=== PATIENT | male | born 1985 | race African-American/Black ===

== ENCOUNTER 2020-07-10 14:00 | Outpatient (CLI) | payer OTHER ==
--- NOTE | 2020-07-10 14:22 | SLEEP CARE CONSULTATION ---
Information from patient questionnaire entered by Yamilex Bledsoe. I have reviewed and concur with the information entered by Yamilex Bledsoe. This document represents the service I personally performed and the decisions made by me, Ivon Lee MD, [facility]. History of Present Illness Service Date and Time: 07/10/2020 1400 Reason for Visit: New patient Chief Complaint: reports: Insomnia, Snoring, Excessive daytime sleepiness, Fatigue Date of Onset: 10+ YEARS Usual bedtime: 2300 usually Time it takes to fall asleep: 20 minutes Snores at night: Yes Observed to quit breathing while asleep: Yes Sleeps alone due to snoring: No Number of times waking at night: 2-3 Reasons for waking at night: reports: Snoring, Other (coughing) Toss, Turn, or Twitch while sleeping: Yes Recalls having dreams: Yes Usually gets out of bed at: 0800 Feels refreshed in the morning: No Morning headache: Yes (sometimes) Sleepy or fatigued during the day: Yes (Everyday) Ever fallen asleep while driving: Yes Takes day naps: Yes Dreams during day naps: No Prior sleep studies: Yes Year and Where: [place] date unknown Additional HPI information: I had the pleasure of seeing Mr. Lu today regarding the possibility of him having a sleep disorder. As you know, he is a 35 year old gentleman who complains of insomnia, loud snore, persistent fatigue, and excessive daytime sl eepiness. He had a sleep study in [place] about 10 years. No treatment was recommended. The patient tells me that he normally goes to bed around 11 pm, and it takes him approximately 20 - 30 minutes to fall asleep. He has been told that he snores loudly and irregularly at night. He has also been observed to stop breathing in his sleep. His can still sleep in the same bed. He can recall waking up on the average of 2 - 3 times during the night. Most of the time he wakes up because of having to use the bathroom and neck pain. He has awakened occasionally because of his own snoring, choking, and having to gasp for air. He has to only sleep on his back. There is a lot of tossing and turning in his sleep. No somniloquy (sleep talking) or somnambulism (sleep walking). Gen jesusy he can recall having dreams. In the morning he usually gets up out of the bed around 8 a.m. not feeling refreshed nor rested. He occasionally has a morning headache. During the day he complains of feeling sleepy and fatigued. His score on [place] Sleepiness Scale is 11 out of 24. He has fallen asleep while driving and has gone out of the asha. He usually takes naps during the day. Upon falling asleep during the day he denies having vivid dreams. He has never had sleep paralysis, experienced cataplexy or symptoms of restless leg syndrome. 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 Patient is and lives in [place]. Have you smoked in the past 12 months: Yes Cigarettes per day (20/pack): 2 Years of smokin Quit date: 04/2020 Smoking Pack Years: 2.0 Alcohol use: Yes Alcohol amount and frequency: 2 drinks, 2x/month Caffeine use: Yes Caffeine amount and frequency: 1 cup/day Family History Family history of sleep disordered breathing: Yes Family Hx Sleep Apnea: Mother: Snoring (uncles), Sibling: Snoring, Other: Sleep apnea - Treated Allergies and Home Medications Drug allergies reviewed: Yes Home medication list reviewed: Yes Review of Systems Cardiovascular: denies: high blood pressure, palpitations, chest pain, irregular heart rate or pulse, leg or foot swelling, have to sleep sitting up, other Respiratory: denies: shortness of breath, wheeze, sputum production, chronic cough, other Gastrointestinal: reports: abdominal pain Urinary: denies: incontinence, frequency, urgency, impotence, other Neurological: reports: headaches Psychiatric: reports: Attention Deficit Hyperactivity, depression, mood disorder (not diagnosed) Ear/Nose/Throat: denies: nasal congestion, sinus problems, nose bleeds, dry mouth/throat, hoarseness, injury to nose, tonsillectomy, wisdom teeth removed, other Endocrine: denies: thyroid disease, history of goiter, sluggishness, too hot or cold, excessive thirst, increased appetite, increased urination, unexplained weakness, other Musculoskeletal: reports: neck pain, back pain Immunologic: denies: sneezing, rash, itching, allergies to food or environment, other Physical Exam Height: 5 ft 7.5 in Weight: 190 lb Body Mass Index: 29.3 BMI Classification: Overweight Impression and Plan IMPRESSION: 1. Obstructive Sleep Apnea-Hypopnea Syndrome, as suggested by history of loud and irregular snoring, observed cessation of breath while asleep, frequent awakenings during the night, unrefreshed sleep, and daytime hypersomnolence. Narrow oropharynx and obesity are common predisposing factors for obstructive sleep apnea-hypopnea syndrome. Pathophysiology of sleep-disordered breathing was discussed. I recommend proceeding to polysomnography to confirm the diagnosis and to assess severity. If he has significant sleep disordered breathing, a manual CPAP titration study will also be performed to find the optimal treatment pressure. I informed the patient of what the sleep studies involve and after some discussion, he agreed to proceed. Plan: 1. Schedule an in-laboratory polysomnography + manual CPAP titration study 2. Avoid long distance driving or when feeling sleepy. 3. Avoid alcohol, sedative and muscle relaxant around bedtime. 4. Attempt to lose weight. 5. Return in 1 to 2 weeks after the study to discuss results and initiate therapy. Visit Type: Telehealth Video Video Type: Doximity Patient Location: Home Location of Provider: Home Patient agrees and consents to this telehealth visit type: Yes Patient agrees to have their insurance billed: Yes Time Spent with Patient (minutes): 15 Provider Statement: I spent 100% of the Telehealth Video Call with the patient with greater than 50% spent counseling the patient and coordination of care.
== END 2020-07-10 14:01 | disposition home or self-care (01) ==
LOC: SC 14:00
PROVIDERS: ATTEND Internal Medicine Pulmonary Disease
DX: R06.83 Snoring (principal); R06.81 Apnea, not elsewhere classified; G47.8 Other sleep disorders; G47.10 Hypersomnia, unspecified; E66.3 Overweight; Z68.29 Body mass index [BMI] 29.0-29.9, adult

== ENCOUNTER 2020-09-16 20:29 | Outpatient (CLI) | payer OTHER | END 2020-09-16 20:30 | disposition home or self-care (01) | LOC: SC 20:29 | PROVIDERS: ATTEND Internal Medicine Pulmonary Disease | DX: R06.83 Snoring (principal); G47.10 Hypersomnia, unspecified; G47.00 Insomnia, unspecified; R53.83 Other fatigue; E66.3 Overweight; Z68.29 Body mass index [BMI] 29.0-29.9, adult | CPT/HCPCS: 95810 ==

== ENCOUNTER 2020-09-26 17:17 | Outpatient (CLI) | payer OTHER ==
--- NOTE | 2020-09-26 17:26 | SLEEP CARE CONSULTATION ---
Information from patient questionnaire entered by Estela Cuellar. I have reviewed and concur with the information entered by Estela Cuellar. This document represents the service I personally performed and the decisions made by , Moon Contreras ARNP. History of Present Illness Service Date and Time: 09/26/2020 1700 Initial [place] Sleepiness Scale score: 11 (in 2020) Current [place] Sleepiness Scale score: 12 Additional HPI information: ARUN WAITE returns via Telehealth visit for follow up and results of the recently performed polysomnography. The patient was informed of the following findings: the patient had no significant sleep disordered breathing with an average AHI of 3.0 and narinder oxygen saturation of 90%. I explained the pathophysiology behind obstructive sleep apnea. Patient does not have sleep apnea and was advised how weight gain could increase the risk of developing sleep apnea in the future. I strongly encouraged the patient to lose weight. Patient has moderate to loud snoring. Snoring can be reduced by weight loss. Weight loss is best achieved with diet consult. Patient instructed to contact PCP for referral. Snoring can also be treated with an oral appliance from a dentist. Advised to check insurance coverage. In addition, an ENT evaluation can be do to see if other treatment is indicated. Patient counseled not drink alcohol less than 4 hours before bedtime as it can increase snoring and apnea. Patient was cautioned about risks of drowsy driving until sleepiness symptoms resolve. Sleep Study - Results Type of Sleep Study: Polysomnography Prior sleep studies: Yes Year and Where: [place] date unknown Polysomnography/Home Sleep Study results: IMPRESSION: The quality of the study is good. The patient had slightly reduced sleep efficiency due to a prolonged awakening in the middle of the night.. The sleep architecture was relatively normal considering the firstnight effect. Respiratory monitoring showed no significant sleep disordered breathing sleep-disordered breathing (AHI = 3.0) or hypoxia (narinder oxygen saturation of 90%). The respiratory events occurred mainly during REM sleep. The patient slept mostly supine (supine AHI = 3.7; non-supine = 0.00). Snore was moderate to loud in intensity. There was no significant periodic leg movement of sleep. Cardiac rhythm was normal sinus rhythm without significant arrhythmia. No abnormal behavior (parasomnia) observed during the night. Allergies and Home Medications Home medication list reviewed: Yes (no changes) Review of Systems Review of systems same as previous: Yes (no changes) Physical Exam Vital signs obtained and entered by: Telehealth visit to limit exposure during Covid pandemic Height: 5 ft 7.5 in Impression and Plan Snoring but no significant sleep disordered breathing. Patient advised that often weight loss will reduce snoring as well as apnea risk. An oral appliance can also be used for snoring. This would require a dental consultation. Patient cautioned not to use other online appliances as can cause bite issues. Patient is advised to check if insurance will cover. An ENT consult can also be helpful to determine if any other treatment is an option. * Attempt to lose weight * Avoid alcohol consumption near bedtime * The patient is cautioned about driving until sleepiness is completely resolved. * Return as needed. Counseling Topics: Weight loss health impact Visit Type: Telehealth Video Video Type: Doxamanda Patient Location: car Location of Provider: Office Patient agrees and consents to this telehealth visit type: Yes Patient agrees to have their insurance billed: Yes Time Spent with Patient (minutes): 14 Provider Statement: I spent 100% of the Telehealth Video Call with the patient with greater than 50% spent counseling the patient and coordination of care.
== END 2020-09-26 17:18 | disposition home or self-care (01) ==
LOC: SC 17:17
PROVIDERS: ATTEND Nurse Practitioner Family
DX: R06.83 Snoring (principal)